=== PATIENT | female | born 1990 | race African-American/Black ===

== ENCOUNTER 2016-07-28 04:58 | Inpatient (IN) | payer OTHER ==
--- NOTE | 2016-07-27 14:34 | HISTORY AND PHYSICAL ---
HISTORY OF PRESENT ILLNESS: The patient is a 26-year-old, G3, P2-0-0-2, with intrauterine at 39 weeks and 0 days. complications include prior C-sections x2. Desires sterility. The patient presents today for repeat section and bilateral tubal ligation. The risks, benefits, and alternatives discussed with the patient, and she desires to proceed. PAST MEDICAL HISTORY: None. PAST SURGICAL HISTORY: x2. OBSTETRICAL HISTORY: Term, x2. GYNECOLOGICAL HISTORY: Noncontributory. SOCIAL HISTORY: No tobacco use. FAMILY HISTORY: Noncontributory. PHYSICAL EXAMINATION: VITAL SIGNS: Patient afebrile. Vital signs are stable. GENERAL: In no acute distress. LUNGS: Respirations nonlabored. ABDOMEN: Soft, gravid. Nontender to palpation. PELVIC: Cervical exam declined today. ASSESSMENT AND PLAN: A 26-year-old, G3, P2-0-0-2, with intrauterine at 39 weeks. Prior x2. We will proceed to the operating room for repeat section and bilateral tubal ligation.
[2016-07-28] MEDS ORDERED: PEPCID PO ONE (05:09)
[2016-07-28] MEDS ORDERED: KEFZOL 1 GM/D5W 50 ML IV PRN (05:09)
[2016-07-28] MEDS ORDERED: REGLAN PO ONE (05:09)
[2016-07-28] MEDS: LR 1,000 ML IV SCH ×4 (05:55→22:55)
[2016-07-28] MEDS ORDERED: PEPCID ONE (06:00)
[2016-07-28] MEDS ORDERED: BICITRA ONE (06:00)
[2016-07-28] MEDS ORDERED: REGLAN ONE (06:00)
[2016-07-28 06:06] LABS: MANUAL DIFF NEEDED? NO; URINE SOURCE VOIDED
[2016-07-28 06:13] LABS: BASO% 0.2 % (0.0-0.8); EOS% 3.5 % (0.0-10.0); HEMATOCRIT 34.3 % (37.0-47.0); HEMOGLOBIN 11.3 g/dL (12.0-16.0); IMM GRAN# 0.02 X1000 (0.0-0.04); IMM GRAN% 0.3 % (0.0-0.5); LYMPH% 24.4 % (20.5-51.1); MCH 28.4 PG (27-31); MCHC 32.9 g/dL (33-37); MCV 86.2 FL (81-99); MONO# 0.49 X1000 (0.11-0.59); MONO% 8.5 % (1.7-9.3); MPV 10.2 FL (7.4-10.4); NEUT% 63.1 % (42.2-75.2); PLT 203 X1000 (130-400); RBC 3.98 XMIL (4.2-5.4)
[2016-07-28 06:23] LABS: BILIRUBIN URINE NEGATIVE (NEGATIVE); BLOOD URINE 1+ (NEGATIVE); CLARITY CLEAR (CLEAR); COLOR YELLOW; GLUCOSE URINE NEGATIVE (NEGATIVE); LEUKOCYTES URINE 1+ (NEGATIVE); NITRITE URINE NEGATIVE (NEGATIVE); PH URINE 6.5; PROTEIN URINE TRACE mg/dL (NEGATIVE); SP GRAVITY URINE 1.015; UROBILINOGEN URINE NORMAL
[2016-07-28] MEDS ORDERED: BENADRYL ONE (06:39)
[2016-07-28] MEDS ORDERED: TORADOL ONE (06:39)
[2016-07-28] MEDS ORDERED: FENTANYL ONE (06:39)
[2016-07-28] MEDS ORDERED: ZOFRAN ONE (06:40)
[2016-07-28] MEDS ORDERED: DURAMORPH ONE (06:40)
[2016-07-28] MEDS ORDERED: PITOCIN ONE ×2 (06:40→06:42)
[2016-07-28] MEDS ORDERED: HEMABATE ONE (06:41)
[2016-07-28] MEDS ORDERED: METHERGINE ONE (06:41)
[2016-07-28] MEDS: ALBUMIN 25% IV SCH ×4 (08:15→12:38)
[2016-07-28] MEDS ORDERED: VERSED ONE (09:24)
[2016-07-28] MEDS ORDERED: NEO-SYNEPHRINE ONE (09:24)
[2016-07-28] MEDS ORDERED: ZOFRAN IV PRN ×3 (10:32→10:33)
[2016-07-28] MEDS ORDERED: ZOFRAN ODT PO PRN (10:32)
[2016-07-28] MEDS ORDERED: NARCAN INJ PRN (10:32)
[2016-07-28] MEDS ORDERED: BENADRYL IV PRN (10:32)
[2016-07-28] MEDS ORDERED: DILAUDID IV PRN (10:33)
[2016-07-28] MEDS ORDERED: PITOCIN 10 UNITS/LR 1,000 ML ONE (10:43)
[2016-07-28] MEDS ORDERED: HYDROXYZINE PO PRN (10:56)
[2016-07-28] MEDS ORDERED: PITOCIN 20 UNITS/LR 1,000 ML IV ONE (10:56)
[2016-07-28] MEDS ORDERED: DEMEROL PO PRN (10:56)
[2016-07-28] MEDS ORDERED: PHENERGAN IM PRN (10:56)
[2016-07-28] MEDS ORDERED: BOOSTRIX VACCINE IM ONE (10:56)
[2016-07-28] MEDS ORDERED: PITOCIN IM PRN (10:56)
[2016-07-28] MEDS ORDERED: HYDROXYZINE IM PRN (10:56)
[2016-07-28] MEDS ORDERED: AMBIEN PO PRN (10:56)
[2016-07-28] MEDS ORDERED: DULCOLAX PR PRN (10:56)
[2016-07-28] MEDS ORDERED: DEMEROL IM PRN (10:56)
[2016-07-28] MEDS ORDERED: MOTRIN PO PRN (10:56)
[2016-07-28] MEDS ORDERED: M-M-R II VACCINE SUBQ ONE (10:56)
[2016-07-28] MEDS ORDERED: CYTOTEC PO PRN (10:56)
[2016-07-28] MEDS: PITOCIN 10 UNITS/LR 1,000 ML IV SCH ×2 (11:00→17:39)
--- NOTE | 2016-07-28 14:51 | OPERATIVE NOTE ---
PROCEDURE DATE: 07/28/2016 PREOPERATIVE DIAGNOSES: 1. Intrauterine at 39 weeks. 2. Prior section x2. 3. Desires sterility. POSTOPERATIVE DIAGNOSES: 1. Intrauterine at 39 weeks. 2. Prior section x2. 3. Desires sterility. 4. Severe pelvic adhesive disease. SURGEON: Peg Hart MD. CASINO CAGE SUPERVISOR: EARL Boo. ANESTHESIA: Spinal. ESTIMATED BLOOD LOSS: 800 mL. COMPLICATIONS: None. COUNTS: Correct x2. FINDINGS: Viable female , weighing 6 pounds 6 ounces with Apgars of 8 and 9. Severe pelvic adhesive disease of the anterior abdominal wall to the uterus, as well as the left fallopian tube to the uterus. INDICATIONS FOR PROCEDURE: The patient is a 26-year-old, G3, P2-0-0-2, with intrauterine at 39 weeks. complications include prior x2 and patient desires sterility. Risks, benefits, and alternatives of the procedure are discussed with patient and she desires to proceed. PROCEDURE IN DETAIL: After proper informed consent was obtained, the patient was taken to the operating room and placed in the dorsal supine position with adequate spinal anesthesia. The abdomen was prepped and draped in normal sterile fashion for abdominal surgery. After an appropriate time-out was performed, a low transverse incision was made over prior scar and carried down to the underlying fascia which was scored in the midline. Fascial incision was extended laterally and cephalic using Carter scissors. Inferior aspect of fascial defect was grasped with Gen clamps and dissected off the underlying rectus abdominis muscle. Similar was carried out to the superior aspect of the fascial defect. At this point, dense adhesions were noted of the uterus to the rectus abdominis muscles. Using careful sharp dissection the scar tissue was taken down and the uterus was identified with a dense adhesion of the left uterus to the anterior abdominal wall. A low transverse incision was made and stretched using the subsurface augmentee operator's hand. The infant was delivered in the vertex presentation. Cord was doubly clamped and cut and infant was handed off to the waiting pediatric staff. The placenta was delivered via manual extraction. With care the uterus was then exteriorized, cleared free of all clot and debris. The hysterotomy was reapproximated using #1 Chromic in a running, locking fashion. A portion of the uterus had been deserosalized so multiple mbjbfz-fk-yxohk stitches were placed in order to gain hemostasis using 2-0 and 3-0 chromic. At this point, the patient was again noted to have some bleeding from the right angle so additional aeijcy-[id number] sutures were placed there with adequate hemostasis noted. Attention was then turned to bilateral tubal ligation. The right fimbria was grasped with the rossana clamp, double suture ligated and transected. Due to adhesions the left tube was not easily mobilized so the midisthmic portion was cauterized using electocautery. The uterus was returned to the abdomen. Gelfoam was placed over the hysterotomy for added hemostasis. The muscles were then reapproximated using #1 chromic in a mattress suture. The fascia was then reapproximated using #1 PDS in a running, continuous fashion. The subcutaneous tissue was reapproximated using 4-0 Monocryl in a running, continuous fashion. Skin was reapproximated using 4-0 Monocryl in a subcuticular fashion. The patient tolerated the procedure well and was transferred to recovery in stable condition. [facility]
[2016-07-28] MEDS: MYLICON PO SCH ×3 (17:02→20:57)
[2016-07-28] MEDS: NORCO-5 PO PRN (17:43)
[2016-07-28] MEDS: PERICOLACE PO SCH (20:44)
[2016-07-28] MEDS: NORCO-10 PO PRN (23:04)
[2016-07-29] MEDS: PITOCIN 10 UNITS/LR 1,000 ML IV SCH (02:44)
[2016-07-29] MEDS: NORCO-10 PO PRN (06:18)
[2016-07-29] MEDS: LR 1,000 ML IV SCH (06:28)
[2016-07-29 07:08] LABS: HEMATOCRIT 28.7 % (37.0-47.0); HEMOGLOBIN 9.1 g/dL (12.0-16.0); MCH 27.8 PG (27-31); MCHC 31.7 g/dL (33-37); MCV 87.8 FL (81-99); MPV 10.5 FL (7.4-10.4); RBC 3.27 XMIL (4.2-5.4)
[2016-07-29] MEDS: DEMEROL PO PRN ×4 (07:26→18:17)
[2016-07-29] MEDS: MYLICON PO PRN (07:28)
[2016-07-29] MEDS: MYLICON PO SCH ×5 (10:46→19:42)
[2016-07-29] MEDS ORDERED: LR 1,000 ML IV SCH (10:56)
[2016-07-29] MEDS: PERICOLACE PO SCH (19:42)
[2016-07-29] MEDS: NORCO-5 PO PRN (20:17)
[2016-07-30] MEDS: NORCO-10 PO PRN ×5 (00:24→20:42)
[2016-07-30] MEDS: MYLICON PO PRN (08:10)
[2016-07-30] MEDS ORDERED: FLUZONE QUAD 2016-2017 SYRINGE IM ONE (10:00)
[2016-07-30] MEDS: MYLICON PO SCH ×4 (13:07→20:43)
[2016-07-30] MEDS: PERICOLACE PO SCH ×2 (19:36→20:42)
[2016-07-31 09:22] VITALS: BP 129/74
[2016-07-31] MEDS: MYLICON PO SCH (09:23)
--- NOTE | 2016-07-31 13:42 | DISCHARGE SUMMARY ---
ADMISSION DATE: 07/28/2016 DISCHARGE DATE: 07/31/2016 ADMITTING DIAGNOSES: 1. Term . 2. Previous section x2. 3. Undesired fertility. PRINCIPAL DIAGNOSES: 1. Term . 2. Previous section x2. 3. Undesired fertility. PRINCIPAL PROCEDURES: Repeat and tubal sterilization. SUMMARY: Cayla Valle is a 26-year-old 3, para 2 at 39 weeks gestation. She had previously had 2 sections. She was requesting repeat and also tubal sterilization. She was therefore admitted to the hospital by Dr. Hart and underwent a repeat C- section. Severe pelvic adhesive disease was noted. She delivered a 6-pound 6-ounce female with Apgars of 8 at 1 minute, 9 at 5 minutes. Other than the severe adhesions, no other abnormalities were noted. Postoperatively, the patient has done well. She has postoperative pain but otherwise fine. Her admission hemoglobin and hematocrit was 11.3/34.3, discharge hemoglobin and hematocrit being 9.1/28.7. On the day of discharge cardiac and pulmonary examinations were normal. Bowel and bladder function was normal. Incision was clean and dry. She is having scant vaginal bleeding. Ms. Valle will be discharged today and we will see her back in the office in 1 week. Routine discharge instructions, activity limitations and precautions were discussed. She will continue vitamins. She will continue her albuterol inhaler. She is given prescriptions for Busby 10 and Motrin for postoperative pain.
== END 2016-07-31 12:40 | disposition home or self-care (01) | DRG 766 ==
LOC: P.LD 04:58 → P.WC 12:08
PROVIDERS: ADMIT Obstetrics & Gynecology; ATTEND Obstetrics & Gynecology
PROC: 0U5 Female Reproductive System, Destruction (ICD-10-PCS; 2016-07-28)
PROC: 10D00Z1 Extraction of Products of Conception, Low, Open Approach (ICD-10-PCS; principal; 2016-07-28 07:30)
PROC: 0UB50ZZ Excision of Right Fallopian Tube, Open Approach (ICD-10-PCS; 2016-07-28 07:30)
DX: O34.211 Maternal care for low transverse scar from previous cesarean delivery (principal); N73.6 Female pelvic peritoneal adhesions (postinfective); Z37.0 Single live birth; Z30.2 Encounter for sterilization; Z3A.39 39 weeks gestation of pregnancy; O99.824 Streptococcus B carrier state complicating childbirth; O69.1XX0 Labor and delivery complicated by cord around neck, with compression, not applicable or unspecified
CPT/HCPCS: 36415; 59025; 81003; 85025; 85027; 86592; 86850; 86900; 86901; J0690; J1170; J1200; J1885; J2210; J2250; J2274; J2370; J2405; J2590; J2765; J3010; J7120; P9047; S0028